=== PATIENT | female | born 1995 | race Caucasian/White ===

== ENCOUNTER 2017-09-19 16:11 | Emergency (ER) | payer OTHER ==
--- NOTE | 2017-09-19 18:01 | ER Document Report ---
ED Medical Screen (RME) - General Chief Complaint: Near Syncope Stated Complaint: WEAKNESS Time Seen by Provider: 09/19/17 17:45 Notes: RAPID MEDICAL EVALUATION DISCLOSURE I have seen this patient as part of a Rapid Medical Evaluation and, if applicable, placed any initially appropriate orders. The patient will be seen and fully evaluated, including a full history and physical exam, by a provider ( in Main ED or Fast Track) when a room becomes available. 21-year-old female here with complaints of lightheadedness that started approximately 2 hours ago [place] the [place]. She felt herself about to pass out so she lowered herself but did not actually pass out. She ate some food hoping it was just low blood sugar and that she could corrected. Her symptoms have improved however she still feels slightly lightheaded. She has a history of hypoglycemia and hypokalemia in the past. She does not complain of any shortness of breath headache chest pain abdominal pain. EXAM CTAB RRR Minimal epigastric TTP Strength 5/5 with intact sensation all extremities TRAVEL OUTSIDE OF THE [place] IN LAST 30 DAYS: No - Related Data Allergies/Adverse Reactions: ciprofloxacin [From Cipro] Allergy (Verified 09/19/17 16:22) codeine Allergy (Verified 09/19/17 16:22) diphenhydramine [From Benadryl] Allergy (Verified 09/19/17 16:22) Past Medical History - Social History Chew tobacco use (# tins/day): No - Past Medical History Cardiac Medical History: Reports: Hx Hypercholesterolemia Renal/ Medical History: Reports: Hx Ovarian Cysts. Denies: Hx Peritoneal Dialysis GI Medical History: Reports: Hx Gastroesophageal Reflux Disease, Hx Colonoscopy , Hx Endoscopy Musculoskeltal Medical History: Reports Hx Musculoskeletal Deformity, Reports Hx Musculoskeletal Trauma Psychiatric Medical History: Reports: Hx Anxiety, Hx Bipolar Disorder, Hx Borderline Personality Disorder, Hx Depression Traumatic Medical History: Reports: Hx Fractures - Thumb elbow and toe Past Surgical History: Reports: Hx Adenoidectomy, Hx Oral Surgery - wisdom teeth , Hx Tonsillectomy - Immunizations Hx Diphtheria, Pertussis, Tetanus Vaccination: No History of Influenza Vaccine for 01/2017 - 06/2017 Season: No Physical Exam - Vital signs Vitals: Temp Pulse Resp BP Pulse Ox 98.4 F 88 16 131/73 H 100 09/19/17 16:43 09/19/17 16:43 09/19/17 16:43 09/19/17 16:43 09/19/17 16:43 Course - Vital Signs Vital signs: Temp Pulse Resp BP Pulse Ox 98.4 F 88 16 131/73 H 100 09/19/17 16:43 09/19/17 16:43 09/19/17 16:43 09/19/17 16:43 09/19/17 16:43
[2017-09-19 18:03] LABS: APPEARANCE,URINE CLEAR; BILIRUBIN,URINE NEGATIVE (NEGATIVE); COLOR,URINE YELLOW; GLUCOSE, URINE NEGATIVE (NEGATIVE); KETONES,URINE NEGATIVE (NEGATIVE); LEUKOCYTE ESTERASE,URINE TRACE (NEGATIVE); NITRITE,URINE NEGATIVE (NEGATIVE); PROTEIN,URINE NEGATIVE (NEGATIVE); URINE SPECIFIC GRAVITY 1.005; UROBILINOGEN,URINE NEGATIVE mg/dL (<2.0)
[2017-09-19 18:58] LABS: ABSOLUTE LYMPHOCYTES (AUTO) 1.4 10^3/uL (0.5-4.7); ABSOLUTE MONOCYTES (AUTO) 0.7 10^3/uL (0.1-1.4); ABSOLUTE NEUT (AUTO) 8.7 10^3/uL (1.7-8.2); BASOPHILS % (AUTO) 0.4 % (0-2); EOSINOPHILS % (AUTO) 0.1 % (0-6); HEMATOCRIT 41.2 % (36.0-47.0); HEMOGLOBIN 14.2 g/dL (12.0-15.5); LYMPHOCYTES % (AUTO) 12.9 % (13-45); MEAN CORPUSCULAR HEMOGLOBIN 28.3 pg (27.0-33.4); MEAN CORPUSCULAR HGB CONC 34.5 g/dL (32.0-36.0); MEAN CORPUSCULAR VOLUME 82 fl (80-97); MONOCYTES % (AUTO) 6.2 % (3-13); PLATELET COUNT 328 10^3/uL (150-450); RED BLOOD COUNT 5.04 10^6/uL (3.72-5.28); RED CELL DISTRIBUTION WIDTH 12.7 % (11.5-14.0); SEGMENTED NEUTROPHILS % (AUTO) 80.4 % (42-78); TOTAL CELLS COUNTED % (AUTO) 100 %; WHITE BLOOD COUNT 10.9 10^3/uL (4.0-10.5)
[2017-09-19 19:23] LABS: ALANINE AMINOTRANSFERASE 31 U/L (5-35); ALKALINE PHOSPHATASE 63 U/L (50-135); ANION GAP 15 (5-19); ASPARTATE AMINO TRANSFERASE 25 U/L (5-30); BILIRUBIN,DIRECT 0.2 mg/dL (0.0-0.4); BILIRUBIN,TOTAL 0.4 mg/dL (0.2-1.3); BLOOD UREA NITROGEN 9 mg/dL (7-20); CALCIUM 10.5 mg/dL (8.4-10.2); CARBON DIOXIDE 25 mmol/L (22-30); CHLORIDE 106 mmol/L (98-107); GLUCOSE 103 mg/dL (75-110); LIPASE 90.9 U/L (23-300); PHOSPHORUS 2.4 mg/dL (2.5-4.5); POTASSIUM 3.6 mmol/L (3.6-5.0); SODIUM 145.7 mmol/L (137-145); TOTAL PROTEIN 8.2 g/dL (6.3-8.2)
--- NOTE | 2017-09-19 21:10 | ER Document Report ---
ED General - General Chief Complaint: Near Syncope Stated Complaint: WEAKNESS Time Seen by Provider: 09/19/17 17:45 Mode of Arrival: Ambulatory Information source: Patient Notes: This is a 21-year-old female with no medical problems who presents to the emergency room with feeling faint. She states she had coffee and Ramen noodles and she felt faint around 2 PM. She denied any abdominal pain. She denied any chest pain or shortness of breath. TRAVEL OUTSIDE OF THE [place] IN LAST 30 DAYS: No - HPI Onset: Just prior to arrival Onset/Duration: Sudden Quality of pain: No pain Severity: None Pain Level: Denies Associated symptoms: denies: Chest pain, Fever, Shortness of breath Exacerbated by: Denies Relieved by: Denies Similar symptoms previously: Yes Recently seen / treated by doctor: Yes - Related Data Allergies/Adverse Reactions: ciprofloxacin [From Cipro] Allergy (Verified 09/19/17 16:22) codeine Allergy (Verified 09/19/17 16:22) diphenhydramine [From Benadryl] Allergy (Verified 09/19/17 16:22) Past Medical History - General Information source: Patient - Social History Smoking Status: Never Smoker Cigarette use (# per day): No Chew tobacco use (# tins/day): No Frequency of alcohol use: None Drug Abuse: None Lives with: Spouse/Significant other Family History: DM, Hyperlipidemia, Malignancy, Thyroid Disfunction. denies: Arthritis, CAD, COPD, CVA, Hypertension Patient has suicidal ideation: No Patient has homicidal ideation: No - Past Medical History Cardiac Medical History: Reports: Hx Hypercholesterolemia Renal/ Medical History: Reports: Hx Ovarian Cysts. Denies: Hx Peritoneal Dialysis GI Medical History: Reports: Hx Gastroesophageal Reflux Disease, Hx Colonoscopy , Hx Endoscopy Musculoskeltal Medical History: Reports Hx Musculoskeletal Deformity, Reports Hx Musculoskeletal Trauma Psychiatric Medical History: Reports: Hx Anxiety, Hx Bipolar Disorder, Hx Borderline Personality Disorder, Hx Depression Traumatic Medical History: Reports: Hx Fractures - Thumb elbow and toe Past Surgical History: Reports: Hx Adenoidectomy, Hx Oral Surgery - wisdom teeth , Hx Tonsillectomy - Immunizations Hx Diphtheria, Pertussis, Tetanus Vaccination: No Review of Systems - Review of Systems Constitutional: denies: Chills, Fever EENT: No symptoms reported Cardiovascular: No symptoms reported Respiratory: No symptoms reported Gastrointestinal: No symptoms reported Genitourinary: No symptoms reported Female Genitourinary: No symptoms reported Musculoskeletal: No symptoms reported Skin: No symptoms reported Hematologic/Lymphatic: No symptoms reported Neurological/Psychological: See HPI Physical Exam - Vital signs Vitals: Temp Pulse Resp BP Pulse Ox 98.4 F 88 16 131/73 H 100 09/19/17 16:43 09/19/17 16:43 09/19/17 16:43 09/19/17 16:43 09/19/17 16:43 Notes: Physical exam: GENERAL: 21-year-old female, alert and oriented 3, no acute distress HEAD: Atraumatic, normocephalic. EYES: Pupils equal round and reactive to light, extraocular movements intact, sclera anicteric, conjunctiva are normal. ENT: TMs normal, nares patent, oropharynx clear without exudates. Moist mucous membranes. NECK: Normal range of motion, supple without obvious mass or JVD. LUNGS: Breath sounds clear to auscultation bilaterally and equal. No wheezes rales or rhonchi. HEART: Regular rate and rhythm without murmurs, rubs or gallops. ABDOMEN: Soft, normoactive bowel sounds. No tenderness to palpation. No guarding, no rebound. No masses appreciated. EXTREMITIES: Normal range of motion, no pitting or edema. No clubbing or cyanosis. NEUROLOGICAL: Cranial nerves II through XII grossly intact. Normal speech, moving all extremities. PSYCH: Normal mood, normal affect. SKIN: Warm, Dry, normal turgor, no rashes or lesions noted. Course - Vital Signs Vital signs: Temp Pulse Resp BP Pulse Ox 98.1 F 60 18 117/70 100 09/19/17 21:33 09/19/17 21:33 09/19/17 21:33 09/19/17 21:33 09/19/17 21:33 - Laboratory Result Diagrams: 09/19/17 18:40 09/19/17 18:40 Laboratory results interpreted by me: 09/19/17 09/19/17 09/19/17 17:30 18:40 18:40 WBC 10.9 H Seg Neutrophils % 80.4 H Lymphocytes % 12.9 L Absolute Neutrophils 8.7 H Sodium 145.7 H Calcium 10.5 H Phosphorus 2.4 L Ur Leukocyte Esterase TRACE H Discharge - Discharge Clinical Impression: Vasovagal episode, UTI Condition: Stable Disposition: HOME, SELF-CARE Instructions: Urinary Tract Infection ([facility]), Vasovagal Symptoms ([facility]) Additional Instructions: As we discussed, your sugar (glucose), and electrolytes (potassium, sodium, chloride) look good today. Your thyroid test (TSH) was normal. The urine test did show some bacteria and a small amount of white blood cells which could indicate early urinary infection. We did send a urine culture and will take 2 days for her to come back. You can call the ER in 2 days ([phone]) for the results of the urine culture. Drink plenty of fluids, return to the emergency room for any concerns that she getting worse. Prescriptions: Sulfamethoxazole/Trimethoprim [Bactrim Ds Tablet] 1 each PO BID #10 tablet Referrals: MARTY MICHAEL DO [Primary Care Provider] - Follow up in 3-5 days
[2017-09-19 21:35] VITALS: BP 117/70
--- NOTE | 2017-09-20 07:23 | EKG REPORT ---
SEVERITY:- ABNORMAL ECG - SINUS ARRHYTHMIA ABNORMAL Q SUGGESTS ANTERIOR INFARCT VERSUS POOR V2 LEAD PLACEMENT , CLINICAL CORRELATION NEEDED. : Confirmed by: Guero Galarza MD 20-Sep-2017 07:23:00
== END 2017-09-19 21:40 | disposition home or self-care (01) ==
LOC: ER 16:11
DX: R55 Syncope and collapse (principal); N39.0 Urinary tract infection, site not specified; Z88.1 Allergy status to other antibiotic agents; Z88.5 Allergy status to narcotic agent; Z88.8 Allergy status to other drugs, medicaments and biological substances
CPT/HCPCS: 36415; 80048; 80076; 81001; 83690; 83735; 84100; 84443; 85025; 87086; 93005; 93010; 99285

== ENCOUNTER → 2018-07-23 | Outpatient (CLI) | payer OTHER ==
--- NOTE | 2018-07-23 15:09 | RADIOLOGY REPORT (SQ) ---
EXAM DESCRIPTION: CT HEAD WITHOUT COMPLETED DATE/TIME: 07/23/2018 2:59 pm REASON FOR STUDY: Intercrainal pressure R68.89 OTHER GENERAL SYMPTOMS AND SIGNS COMPARISON: None. TECHNIQUE: Axial images acquired through the brain without intravenous contrast. Images reviewed wi th bone, brain and subdural windows. Additional sagittal and coronal reconstructions were generated. Images stored on PACS. All CT scanners at this facility use dose modulation, iterative reconstruction, and/or weight based d osing when appropriate to reduce radiation dose to as low as reasonably achievable (ALARA). [facility]: Dose Right [facility]: CareDose [facility]: Dose Right [facility]: Teradose 4D [facility]: Wishdates RADIATION DOSE: CT Rad equipment meets quality standard of care and radiation dose reduction techniq ues were employed. CTDIvol: 48.5 mGy. DLP: 879 mGy-cm. mGy. LIMITATIONS: None. FINDINGS: VENTRICLES: Normal size and contour. CEREBRUM: No masses. No hemorrhage. No midline shift. No evidence for acute infarction. Normal gra y/white matter differentiation. No areas of low density in the white matter. CEREBELLUM: No masses. No hemorrhage. No alteration of density. No evidence for acute infarction. EXTRAAXIAL SPACES: No fluid collections. No masses. ORBITS AND GLOBE: No intra- or extraconal masses. Normal contour of globe without masses. CALVARIUM: No fracture. PARANASAL SINUSES: No fluid or mucosal thickening. SOFT TISSUES: No mass or hematoma. OTHER: No other significant finding. IMPRESSION: NORMAL BRAIN CT WITHOUT CONTRAST. EVIDENCE OF ACUTE STROKE: NO. COMMENT: Quality ID # [id number]: Final reports with documentation of one or more dose reduction techniques (e.g., Automated exposure control, adjustment of the mA and/or kV according to patient size, use of iterative reconstruction technique) TECHNICAL DOCUMENTATION: JOB ID: [id number] [employer]- All Rights Reserved Reading location - IP/workstation name: [email or web address]
== END ==
LOC: RAD 13:34
PROVIDERS: ATTEND Obstetrics & Gynecology
DX: R68.89 Other general symptoms and signs (principal)
CPT/HCPCS: 70450

== ENCOUNTER 2018-09-04 13:10 | Emergency (ER) | payer OTHER ==
[2018-09-04 13:44] VITALS: BP 113/68
--- NOTE | 2018-09-04 14:13 | ER Document Report ---
ED Medical Screen (RME) - General Chief Complaint: Abdominal Pain Stated Complaint: ABDOMINAL PAIN Time Seen by Provider: 09/04/18 14:10 Primary Care Provider: ALAINA REN MD [Primary Care Provider] - Follow up as needed Mode of Arrival: Ambulatory Information source: Patient TRAVEL OUTSIDE OF THE [place] IN LAST 30 DAYS: No - HPI Patient complains to provider of: abdo pain Notes: 09/04/18 14:11 . Brief encounter with the patient and she was screaming at the pivot nurse that she needed to be seen immediately. Went out to the lobby because the patient says that she was feeling somewhat lightheaded and was having some abdominal pain. I reviewed her vital signs which are stable at this time. I ex plained to her that she will need to wait a little longer to be completely evaluated in triage as there are several people that are checked in ahead of her. Her vitals are stable at this time. She then got upset started making phone calls. She states that she may go somewhere else to be seen. I told her that if she decides to do that, this is fine, to just let us know that she is leaving. Patient will require further in-depth history, exam and potential orders in addition to what I have ordered from my brief exchange with her out in the lobby. An initial examination was made on the patient as part of the triage process, and it was determined a more comprehensive evaluation was necessary. Initial labs were ordered and patient was transferred to another provider in the ED who assumed care and finished evaluation and plan. - Related Data Allergies/Adverse Reactions: ciprofloxacin [From Cipro] Allergy (Verified 09/19/17 16:22) codeine Allergy (Verified 09/19/17 16:22) diphenhydramine [From Benadryl] Allergy (Verified 09/19/17 16:22) Past Medical History - Past Medical History Cardiac Medical History: Reports: Hx Hypercholesterolemia Renal/ Medical History: Reports: Hx Ovarian Cysts. Denies: Hx Peritoneal Dialysis GI Medical History: Reports: Hx Gastroesophageal Reflux Disease, Hx Colonoscopy, Hx Endoscopy Musculoskeltal Medical History: Reports Hx Musculoskeletal Deformity, Reports Hx Musculoskeletal Trauma Psychiatric Medical History: Reports: Hx Anxiety, Hx Bipolar Disorder, Hx Borderline Personality Disorder, Hx Depression Traumatic Medical History: Reports: Hx Fractures - Thumb elbow and toe Past Surgical History: Reports: Hx Adenoidectomy, Hx Oral Surgery - wisdom teeth, Hx Tonsillectomy - Immunizations Hx Diphtheria, Pertussis, Tetanus Vaccination: No History of Influenza Vaccine for 01/2017 - 06/2017 Season: No Physical Exam - Vital signs Vitals: Temp Pulse Resp BP Pulse Ox 98.3 F 101 H 14 113/68 97 09/04/18 13:39 09/04/18 13:39 09/04/18 13:39 09/04/18 13:39 09/04/18 13:39 Course - Vital Signs Vital signs: Temp Pulse Resp BP Pulse Ox 98.3 F 101 H 14 113/68 97 09/04/18 13:39 09/04/18 13:39 09/04/18 13:39 09/04/18 13:39 09/04/18 13:39 Doctor's Discharge - Discharge Referrals: ALAINA REN MD [Primary Care Provider] - Follow up as needed
== END 2018-09-04 14:24 | disposition left against medical advice (07) ==
LOC: ER 13:10
DX: R10.9 Unspecified abdominal pain (principal); R42 Dizziness and giddiness; Z88.1 Allergy status to other antibiotic agents; Z88.5 Allergy status to narcotic agent; Z88.8 Allergy status to other drugs, medicaments and biological substances; Z87.42 Personal history of other diseases of the female genital tract; Z87.19 Personal history of other diseases of the digestive system; Z53.20 Procedure and treatment not carried out because of patient's decision for unspecified reasons
CPT/HCPCS: 99281

== ENCOUNTER 2018-09-10 23:08 | Emergency (ER) | payer OTHER ==
[2018-09-10 23:15] VITALS: BP 124/82
[2018-09-11] MEDS ORDERED: PREDNISONE 20 MG TABLET PO ONE (01:28)
--- NOTE | 2018-09-11 01:33 | ER Document Report ---
ED General - General Chief Complaint: Allergic Reaction Stated Complaint: THROAT PROBLEM Time Seen by Provider: 09/11/18 01:08 Primary Care Provider: ALAINA REN MD [Primary Care Provider] - Follow up as needed Mode of Arrival: Ambulatory Information source: Patient TRAVEL OUTSIDE OF THE [place] IN LAST 30 DAYS: No - HPI Patient complains to provider of: Allergic reaction, throat feels tight Onset: Other - Since last Saturday Onset/Duration: Sudden Quality of pain: No pain Severity: Moderate Pain Level: 3 Associated symptoms: None Exacerbated by: Denies Relieved by: Denies Similar symptoms previously: No Recently seen / treated by doctor: No Notes: 22-year-old female coming in today chief complaint of throat feels tight, hurts to swallow. Patient had what she believes is an allergic reaction this past Saturday night. She states she was eating some little [employer] brownies which she has had many many times before. States that she developed hives all over and was suddenly having breathing problems. She was taken to hospital where she was treated with Benadryl and was put on Zantac. Patient's dates that she does not want to take Benadryl on a regular basis because it causes severe anxiety. She states that she went to see her doctor about the throat tightening and that they told her this was just her anxiety and nothing more. Patient is adamant that she feels this is much more than just anxiety. - Related Data Allergies/Adverse Reactions: ciprofloxacin [From Cipro] Allergy (Verified 09/19/17 16:22) codeine Allergy (Verified 09/19/17 16:22) diphenhydramine [From Benadryl] Allergy (Verified 09/19/17 16:22) Past Medical History - General Information source: Patient - Social History Smoking Status: Never Smoker Chew tobacco use (# tins/day): No Frequency of alcohol use: None Drug Abuse: None, Marijuana Family History: DM, Hyperlipidemia, Malignancy, Thyroid Disfunction. denies: Arthritis, CAD, COPD, CVA, Hypertension Patient has suicidal ideation: No Patient has homicidal ideation: No - Past Medical History Cardiac Medical History: Reports: Hx Hypercholesterolemia Renal/ Medical History: Reports: Hx Ovarian Cysts. Denies: Hx Peritoneal Dialysis GI Medical History: Reports: Hx Gastroesophageal Reflux Disease, Hx Colonoscopy, Hx Endoscopy Musculoskeletal Medical History: Reports Hx Musculoskeletal Deformity, Reports Hx Musculoskeletal Trauma Psychiatric Medical History: Reports: Hx Anxiety, Hx Bipolar Disorder, Hx Borderline Personality Disorder, Hx Depression Traumatic Medical History: Reports: Hx Fractures - Thumb elbow and toe Past Surgical History: Reports: Hx Adenoidectomy, Hx Oral Surgery - wisdom teeth, Hx Tonsillectomy - Immunizations Hx Diphtheria, Pertussis, Tetanus Vaccination: No Review of Systems - Review of Systems Notes: Constitutional: No fevers. No chills. EENT: No eye redness. No eye pain. No ear pain. Tightness in her throat. Positive sore throat Cardiovascular: No chest pain. No palpitations. Respiratory: No cough. No shortness of breath. No respiratory distress. Gastrointestinal: No abdominal pain. No nausea, vomiting, or diarrhea. Genitourinary: Atraumatic. No lesions. No pain. No discharge. Musculoskeletal: Atraumatic. No swelling. No deformities. Skin: No rash or lesions. Lymphatic: No swollen lymph nodes. Neurologic: No headache. No syncope. Psychiatric: No suicidal or homicidal ideation. Physical Exam - Vital signs Vitals: Temp Pulse Resp BP Pulse Ox 97.9 F 71 16 124/82 100 09/10/18 23:14 09/10/18 23:14 09/10/18 23:14 09/10/18 23:14 09/10/18 23:14 - Notes Notes: General: Well-developed, well-nourished. In no acute distress. Non-toxic appearing. Cardiac: Well-perfused. Regular rate and rhythm. No murmurs, rubs, or gallops. Pulmonary: No respiratory distress. No cyanosis. Bilateral lung fiels are clear to auscultation. Abdominal: Non-distended. Non-rigid. Bowels sounds are present in all four lee drants. No guarding or rebound. HEENT: Head is atraumatic. Conjunctivae not reddened. No tearing. PERRL. EOMI. Orbits atraumatic. No periorbital swelling or erythema. Oropharynx is without erythema, swelling, or exudates. There is no oropharyngeal swelling. There is no erythema or narrowed airway posteriorly. No trismus. No drooling. No submandibular or sublingual swelling. No dysphonia dyspnea or dysphagia Neck: Supple. No adenopathy. No meningismus. Dermatologic: Warm with good turgor. No rash. Atraumatic. Chest: Atraumatic. No chest wall tenderness to palpation. Musculoskeletal: Moves all extremities well. No range of motion deficits. no muscular or joint tenderness. No paraspinal muscle tenderness. no midline spinal tenderness or step-off. Genitourinary: Examination deferred Neurologic: No gross neurologic deficits. Psychiatric: Normal mood. Course - Re-evaluation Re-evalutation: 09/11/18 01:31 Given the patient's history of a bad urticarial reaction, I will continue treating this like the sequelae to an allergic reaction. She is currently on Zantac which is a good antihistamine. She is allergic to Benadryl as this makes her anxiety worse. We will start her on 40 mg of prednisone daily for 5 days. We will start by giving her a dose now. She understands this can take a while to effectively get again. Hoping this will improve her symptoms. - Vital Signs Vital signs: Temp Pulse Resp BP Pulse Ox 97.9 F 71 16 124/82 100 09/10/18 23:14 09/10/18 23:14 09/10/18 23:14 09/10/18 23:14 09/10/18 23:14 Discharge - Discharge Clinical Impression: Allergic reaction Qualifiers: Encounter type: initial encounter Qualified Code(s): T78.40XA - Allergy, unspecified, initial encounter Condition: Good Disposition: HOME, SELF-CARE Instructions: Acute Allergic Reaction ([facility]) Additional Instructions: Return to the ER at any time of your symptoms get worse. Continue your Zantac. Start prednisone tomorrow. Continue daily for 5 days. Prescriptions: Prednisone [Deltasone 20 mg Tablet] 2 tab PO DAILY 5 Days #10 tablet Referrals: ALAINA REN MD [Primary Care Provider] - 09/15/18
== END 2018-09-11 01:55 | disposition home or self-care (01) ==
LOC: ER 23:08
DX: T78.40XA Allergy, unspecified, initial encounter (principal); L50.9 Urticaria, unspecified; F41.9 Anxiety disorder, unspecified
CPT/HCPCS: 99283; J7512